=== PATIENT | female | born 1975 | race Caucasian/White ===

== ENCOUNTER 2018-05-02 09:48 | Emergency (ER) | payer OTHER ==
[~2018-05-02] VITALS: Ht 167.6 cm; Wt 72.7 kg
[2018-05-02 10:03] VITALS: Ht 167.6 cm; Wt 72.7 kg
[2018-05-02] MEDS ORDERED: CELEXA20 MG PO (10:07)
[2018-05-02] MEDS ORDERED: HYDROCODON-ACE1 EAC2 PO (12:24)
[2018-05-02 12:43] VITALS: BP 152/107
== END 2018-05-02 12:44 | disposition home or self-care (01) ==
LOC: D.ER 09:48
DX: S16.1XXA Strain of muscle, fascia and tendon at neck level, initial encounter (principal); V43.52XA Car driver injured in collision with other type car in traffic accident, initial encounter; Y93.89 Activity, other specified; Y92.410 Unspecified street and highway as the place of occurrence of the external cause; R51 Headache; S29.012A Strain of muscle and tendon of back wall of thorax, initial encounter